=== PATIENT | male | born 1950 | race Two or more races ===

== ENCOUNTER 2023-10-22 19:38 | Inpatient (IN) | payer OTHER ==
[~2023-10-22] VITALS: Ht 177.8 cm; Wt 78.0 kg
[2023-10-22] MEDS ORDERED: SODIUM CHLORIDE 0.9% 1,000 ML IV ONE (20:00)
[2023-10-22] MEDS ORDERED: ACETAMINOPHEN 325 MG TAB PO ONE (20:00)
[2023-10-22] MEDS: NALOXONE HCL 0.4 MG/ML VIAL IV ONE ×2 (20:42→21:06)
[2023-10-22 20:51] VITALS: PULSE 66; RESP 16; O2SAT 94
[2023-10-22 20:57] LABS: Basophils # (auto) 0.1 10 ^3/uL (0-0.2); Basophils % (auto) 0.8 % (0.0-2.0); Eosinophils # (auto) 0.5 10 ^3/uL (0-0.8); Eosinophils % (auto) 5.3 % (0.0-7.0); Hematocrit 38.2 % (41.0-53.0); Hemoglobin 12.4 g/dL (13.5-17.5); Lymphocytes # (auto) 2.9 10 ^3/uL (0.4-5.4); Mean Corpuscular Hemoglobin 32.3 pg (28.0-32.0); Mean Corpuscular Hgb Conc. 32.5 g/dL (32.0-36.0); Mean Corpuscular Volume 99.4 fL (80.0-100.0); Monocytes # (auto) 0.5 10 ^3/uL (0-1.3); Monocytes % (auto) 5.7 % (0.0-12.0); Neutrophils # (auto) 5.1 10 ^3/uL (1.6-8.6); Neutrophils % (auto) 56.2 % (37.0-80.0); Red Blood Cells 3.85 10^6/uL (4.5-5.90); Red Cell Distribution Width 15.2 % (11.8-14.3); White Blood Cell 9.2 10^3/uL (4.4-10.8)
[2023-10-22 21:12] LABS: Alanine Aminotransferase 167 U/L (7-40); Albumin 3.9 g/dL (3.2-4.8); Alkaline Phosphatase 116 U/L (46-116); Anion Gap 16 (5-15); Aspartate Aminotransferase 330 U/L (13-40); BUN/Creatinine Ratio 11.4 (10.0-20.0); Blood Alcohol < 3.0 mg/dL (<10); Blood Urea Nitrogen 21 mg/dL (9-23); Calcium 8.9 mg/dL (8.5-10.1); Carbon Dioxide 18 mmol/L (20-30); Chloride 106 mmol/L (98-107); Glucose 255 mg/dL (74-106); Potassium 3.5 mmol/L (3.5-5.1); Sodium 140 mmol/L (136-145)
[2023-10-22 21:13] LABS: Bilirubin, Total 0.4 mg/dL (0.2-1.0); Total Protein 6.1 g/dL (5.7-8.2)
[2023-10-22] MEDS ORDERED: SODIUM CHLORIDE 0.9% 2,350 ML IV ONE ×2 (21:15→22:30)
[2023-10-22] MEDS ORDERED: SODIUM CHLORIDE 0.9% 2,000 ML IV ONE (21:15)
[2023-10-22 21:25] LABS: INR 1.09 (0.9-1.15); Partial Thromboplastin Time 24.8 SEC (24.5-34.5); Prothrombin Time 11.4 sec (9.3-11.8)
[2023-10-22 21:40] LABS: Lactic Acid w/Reflex 7.2 mmol/L (0.4-2.0)
[2023-10-22 22:13] LABS: Magnesium 2.4 mg/dL (1.6-2.6)
[2023-10-22] MEDS ORDERED: ASPirin 81 mg TAB PO ONE (22:30)
[2023-10-22] MEDS ORDERED: HEPARIN SODIUM (PORCINE) 5000 UNITS/ML 1ML VIAL IV ONE (22:30)
[2023-10-22] MEDS ORDERED: PANTOPRAZOLE 40 MG/10 ML VIAL INJ IV ONE (22:30)
[2023-10-22] MEDS ORDERED: SODIUM BICARBONATE 8.4 % INJ 50ML VIAL IV ONE (22:30)
[2023-10-22] MEDS: ATORVASTATIN 20 MG TAB PO ONE (22:50)
[2023-10-22] MEDS ORDERED: VANCOMYCIN 1GM/250ML 250 ML IV ONE (23:00)
[2023-10-22] MEDS ORDERED: HEPARIN DRIP/D5W 100UNITS/ML 250 ML IV SCH (23:00)
[2023-10-22 23:14] LABS: Triglycerides 131 mg/dL (< 150)
[2023-10-22 23:15] LABS: LDL Cholesterol 115 mg/dL (< 100)
[2023-10-22 23:16] LABS: Cholesterol 170 mg/dL (< 200); HDL Cholesterol 49 mg/dL (40-59)
[2023-10-22] MEDS ORDERED: IOHEXOL 350 MG/ML 100ML IJ ONE (23:20)
[2023-10-23] MEDS ORDERED: ALBUMIN 25% 100 ML IV ONE
[2023-10-23] MEDS ORDERED: PIPERACILLIN-TAZOB 3.375GM 100 ML IV SCH
[2023-10-23] MEDS: ATORVASTATIN 20 MG TAB PO ONE (00:08)
[2023-10-23 01:02] LABS: Urine Bacteria NONE SEEN /hpf (None Seen); Urine Blood Negative /uL (Negative); Urine Clarity Clear (Clear); Urine Color Yellow (Yellow); Urine Protein, UAD TRACE (Negative); Urine Specific Gravity 1.017 (1.001-1.035); Urine Urobilinogen Normal (Negative); Urine WBC <1 /hpf (0 - 3)
[2023-10-23 01:24] LABS: Amphetamine Screen, Urine Neg (NEGATIVE); Barbiturate Scree,Urine Neg (NEGATIVE); Benzodiazephine Screen, Urine Neg (NEGATIVE); Cannabinoid Screen, Urine Neg (NEGATIVE); Cocaine Screen, Urine Neg (NEGATIVE); Opiate Scree,Urine Neg (NEGATIVE); Phencyclidine Screen, Urine Neg (NEGATIVE)
[2023-10-23] MEDS ORDERED: NITROGLYCERIN 0.4 MG SL TAB SL PRN (04:00)
[2023-10-23] MEDS ORDERED: MORPHINE SULFATE INJ 2 MG/ml SYRG IV PRN ×2 (04:00)
[2023-10-23] MEDS ORDERED: ONDANSETRON HCL 4 MG/2 ML VIAL IV PRN (04:00)
[2023-10-23] MEDS ORDERED: SODIUM CHLORIDE 0.9% 1,000 ML IV SCH (04:00)
[2023-10-23 04:39] LABS: Basophils # (auto) 0 10 ^3/uL (0-0.2); Basophils % (auto) 0.2 % (0.0-2.0); Eosinophils # (auto) 0 10 ^3/uL (0-0.8); Hematocrit 37.1 % (41.0-53.0); Hemoglobin 11.9 g/dL (13.5-17.5); Lymphocytes # (auto) 0.7 10 ^3/uL (0.4-5.4); Mean Corpuscular Hemoglobin 32.1 pg (28.0-32.0); Mean Corpuscular Hgb Conc. 32.2 g/dL (32.0-36.0); Mean Corpuscular Volume 99.5 fL (80.0-100.0); Monocytes # (auto) 0.6 10 ^3/uL (0-1.3); Monocytes % (auto) 5.1 % (0.0-12.0); Neutrophils % (auto) 88.7 % (37.0-80.0); Nucleated Red Blood Cells % 0.1 %; Red Blood Cells 3.72 10^6/uL (4.5-5.90); Red Cell Distribution Width 15.3 % (11.8-14.3); White Blood Cell 12.4 10^3/uL (4.4-10.8)
[2023-10-23] MEDS ORDERED: PHENYLEPHRINE IV 250 ML IV ONE (04:51)
[2023-10-23] MEDS ORDERED: NOREPINEPHRINE 8 MG/250ML KIT 250 ML IV SCH (05:00)
[2023-10-23 05:09] LABS: Alanine Aminotransferase 409 U/L (7-40); Albumin 3.7 g/dL (3.2-4.8); Alkaline Phosphatase 94 U/L (46-116); Anion Gap 10 (5-15); Aspartate Aminotransferase 633 U/L (13-40); BUN/Creatinine Ratio 8.9 (10.0-20.0); Bilirubin, Total 0.6 mg/dL (0.2-1.0); Blood Urea Nitrogen 18 mg/dL (9-23); Carbon Dioxide 21 mmol/L (20-30); Chloride 110 mmol/L (98-107); Potassium 4.4 mmol/L (3.5-5.1); Sodium 141 mmol/L (136-145)
[2023-10-23 05:10] LABS: Total Protein 5.8 g/dL (5.7-8.2)
[2023-10-23] MEDS ORDERED: PHENYLEPHRINE IV 250 ML IV SCH (05:15)
[2023-10-23 05:33] LABS: Glucose 144 mg/dL (74-106)
[2023-10-23 05:41] VITALS: BP 93/63; PULSE 133; RESP 30; O2SAT 91
[2023-10-23 05:45] VITALS: TEMP 100
[2023-10-23] MEDS ORDERED: PROMETHAZINE HCL 25 MG/ML 1ML IV ONE (05:45)
[2023-10-23] MEDS ORDERED: ACETAMINOPHEN 650 MG RECT SUPP PR ONE (05:45)
[2023-10-23] MEDS ORDERED: ETOMIDATE (2MG/ML) 20ML VIAL IV ONE (05:55)
[2023-10-23] MEDS ORDERED: ROCURONIUM 10MG/ML 10ML VIAL IV ONE (05:55)
[2023-10-23] MEDS ORDERED: SODIUM CHLOR 0.9% PF (SALINE LOCK) 10ML VIAL/SYR IV SCH (06:00)
[2023-10-23] MEDS ORDERED: PANTOPRAZOLE 40 MG/10 ML VIAL INJ IV SCH (10:00)
[2023-10-23] MEDS ORDERED: ASPirin 81 mg TAB PO SCH (10:00)
[2023-10-23] MEDS ORDERED: VANCOMYCIN 1GM/250ML 250 ML IV SCH (10:00)
[2023-10-24] MEDS ORDERED: ASPirin 81 mg TAB PO SCH (10:00)
== END 2023-10-23 06:08 | DRG 871 ==
LOC: EDBD 19:38 → ER 19:38 → TELE 10-23 04:06
PROVIDERS: ADMIT Nurse Practitioner; ATTEND Nurse Practitioner Acute Care
PROC: 5A12012 Performance of Cardiac Output, Single, Manual (ICD-10-PCS; principal; 2023-10-23)
PROC: 0CHY7BZ Insertion of Airway into Mouth and Throat, Via Natural or Artificial Opening (ICD-10-PCS; 2023-10-23)
DX: A41.9 Sepsis, unspecified organism (principal); G93.41 Metabolic encephalopathy; I21.4 Non-ST elevation (NSTEMI) myocardial infarction; K81.0 Acute cholecystitis; N17.9 Acute kidney failure, unspecified; E78.5 Hyperlipidemia, unspecified; I10 Essential (primary) hypertension
CPT/HCPCS: 31500; 36415; 70450; 71045; 71275; 74176; 80053; 80061; 80307; 80320; 81001; 82962; 83605; 83735; 84484; 85025; 85379; 85610; 85730; 87040; 87077; 87086; 87186; 92950; 93005; 99291; C9113; G0378; J2405; J2543; P9047